=== PATIENT | male | born 1960 ===

== ENCOUNTER 2017-06-07 00:12 | Emergency (ER) | payer BC ==
[2017-06-07 01:18] VITALS: RESP 16; TEMP 97.6; O2SAT 100
--- NOTE | 2017-06-07 02:35 | ED PDOC ---
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 Patient notes having a mild headache at home, prompting him to check his blood pressure. States he presents to ED for evaluation after blood pressure was 201 systolic. Patient notes that upon arrival his HTN is resolving. (-) chest pain, SOB, visual changes, weakness, or numbness/tingling. PCP: Dr. Kaplan Past Medical History Reviewed: Historical Data, Nursing Documentation, Vital Signs Vital Signs: Last Vital Signs Temp 97.6 F 06/07/17 01:16 Pulse 63 06/07/17 01:56 Resp 16 06/07/17 01:16 BP 170/89 H 06/07/17 01:56 Pulse Ox 100 06/07/17 01:16 - Medical History PMH: HTN - Family History Family History: States: No Known Family Hx - Living Arrangements Living Arrangements: With Family - Allergies Allergies/Adverse Reactions: Allergies Allergy/AdvReac Type Severity Reaction Status Date / Time No Known Allergies Allergy Verified 06/07/17 01:18 Review of Systems ROS Statement: Except As Marked, All Systems Reviewed And Found Negative Constitutional: Negative for: Weakness Eyes: Negative for: Vision Change Cardiovascular: Positive for: Other ((+) hypertensive episode - currently resolving). Negative for: Chest Pain Respiratory: Negative for: Shortness of Breath Neurological: Negative for: Weakness, Numbness Physical Exam - Reviewed Nursing Documentation Reviewed: Yes Vital Signs Reviewed: Yes - Physical Exam Appears: Positive for: Well, Non-toxic, No Acute Distress Skin: Positive for: Normal Color, Warm, Dry Eye Exam: Positive for: EOMI, Normal appearance, PERRL Neck: Positive for: Normal, Painless ROM, Supple Cardiovascular/Chest: Positive for: Regular Rate, Rhythm. Negative for: Murmur Respiratory: Positive for: Normal Breath Sounds. Negative for: Respiratory Distress Neurologic/Psych: Positive for: Alert, Oriented. Negative for: Motor/Sensory Deficits - ECG O2 Sat by Pulse Oximetry: 100 (RA) Pulse Ox Interpretation: Normal Medical Decision Making Medical Decision Makin Initial impression: high blood pressure and anxiety Initial plan: * Zestril 10mg PO * Re-eval 0300 BP improving, advised patient to recheck in AM and f/u w/ Dr. Kaplan. Return precautions discussed. Scribe Attestation: Documented by Sahara Lyon acting as a scribe for Jose Wray MD. DO Scribe Attestation: All medical record entries made by the Scribe were at my direction and personally dictated by me. I have reviewed the chart and agree that the record accurately reflects my personal performance of the history, physical exam, medical decision making, and the department course for this patient. I have also personally directed, reviewed, and agree with the discharge instructions and disposition. Disposition - Clinical Impression Clinical Impression: Hypertension - Disposition Referrals: Bunny Kaplan MD [Primary Care Provider] - Disposition: Routine/Home Disposition Time: 03:00 Condition: STABLE Instructions: High Blood Pressure in Adults Forms: [facility] (Fijian) Print Language: MONGOLIAN
[2017-06-07 03:43] VITALS: BP 155/93; PULSE 57
== END 2017-06-07 03:53 | disposition home or self-care (01) ==
LOC: H.ER 00:12
DX: I10 Essential (primary) hypertension (principal)